=== PATIENT | female | born 1995 | race Caucasian/White ===

== ENCOUNTER 2018-03-14 20:29 | Emergency (ER) | payer BC ==
[2018-03-14 20:49] VITALS: BP 125/68
--- NOTE | 2018-03-14 20:57 | UC ---
Ear Complaint HPI - HPI Summary HPI Summary: Pt c/o left ear pain, swelling and purulent discharge X 2 days. Pt also c/o right ear feeling "full". - History of Current Complaint Chief Complaint: UCEar Stated Complaint: L EAR ISSUE Time Seen by Provider: 03/14/18 20:44 Hx Obtained From: Patient Hx Last Menstrual Period: 02/09/18 ?: No Onset/Duration: Sudden Onset, Lasting Days, Still Present Severity Initially: Mild Severity Currently: Moderate Pain Intensity: 7 Associated Signs/Symptoms: Positive: Swelling @ - Allergies/Home Medications Allergies/Adverse Reactions: Allergies Allergy/AdvReac Type Severity Reaction Status Date / Time No Known Allergies Allergy Verified 03/14/18 20:44 Home Medications: Home Medications Control Pill 1 tab PO DAILY 03/14/18 [History Confirmed 03/14/18] PARoxetine HCL TAB* [Paxil TAB*] 30 mg PO DAILY 03/14/18 [History Confirmed 05/20] PMH/Surg Hx/FS Hx/Imm Hx Previously Healthy: Yes - Surgical History Surgical History: None - Family History Known Family History: Positive: Cardiac Disease - Social History Occupation: Employed Full-time Lives: With Family Alcohol Use: Occasionally Substance Use Type: None Smoking Status (MU): Never Smoked Tobacco Have You Smoked in the Last Year: No Review of Systems Constitutional: Negative Skin: Negative Eyes: Negative ENT: Ear Ache Respiratory: Negative Cardiovascular: Negative Gastrointestinal: Negative Genitourinary: Negative Motor: Negative Neurovascular: Negative Musculoskeletal: Negative Neurological: Negative Psychological: Negative Is Patient Immunocompromised?: No All Other Systems Reviewed And Are Negative: Yes Physical Exam Triage Information Reviewed: Yes Appearance: Well-Appearing Vital Signs: Initial Vital Signs Temp 99 F 03/14/18 20:45 Pulse 79 03/14/18 20:45 Resp 16 03/14/18 20:45 BP 125/68 03/14/18 20:45 Pulse Ox 100 03/14/18 20:45 Vital Signs Reviewed: Yes Eyes: Positive: Conjunctiva Clear ENT Exam: Other ENT: Positive: Other - left ear canal erythema and swelling with purulent discharge. Dental Exam: Normal Neck: Positive: Enlarged Nodes @ - at base of left ear lobe. Respiratory: Positive: No respiratory distress Musculoskeletal Exam: Normal Neurological Exam: Normal Psychological Exam: Normal Skin Exam: Normal Ear Complaint Course/Dx - Differential Dx/Diagnosis Differential Diagnosis/HQI/PQRI: Cerumen Impaction, Otitis Externa, Otitis Media Provider Diagnoses: left ear otitis externa Discharge - Sign-Out/Discharge Documenting (check all that apply): Patient Departure All imaging exams completed and their final reports reviewed: No Studies - Discharge Plan Condition: Stable Disposition: HOME Prescriptions: Neomyc/Polym/HC 1% OTIC SUSP* [Cortisporin Otic Susp 1%*] 4 drop LEFT EAR Q6H 7 Days #1 btl Patient Education Materials: Otitis Externa (ED) Referrals: Vannessa Rey [Primary Care Provider] - If Needed Additional Instructions: Please follow up with your PCP as needed. - Billing Disposition and Condition Condition: STABLE Disposition: Home
== END 2018-03-14 21:05 | disposition home or self-care (01) ==
LOC: UCCORT 20:29
DX: H92.02 Otalgia, left ear (principal)
CPT/HCPCS: 99202; G0463

== ENCOUNTER 2018-09-01 12:53 | Emergency (ER) | payer BC ==
[2018-09-01 13:51] VITALS: BP 119/64
--- NOTE | 2018-09-01 14:25 | UC ---
Lower Extremity/Ankle HPI - HPI Summary HPI Summary: 23-year-old female presents with complaints of right foot pain. States last night she jumped off a couch and causing a hyperextension of her toes. She is complaining of pain at the base of the third, fourth, and fifth toes of her right foot. She was able to bear weight immediately after the injury as well as the clinic. Denies any numbness or tingling. - History of Current Complaint Chief Complaint: UCLowerExtremity Stated Complaint: RIGHT FOOT INJURY Time Seen by Provider: 09/01/18 13:54 Hx Obtained From: Patient Hx Last Menstrual Period: 3 wks Pain Intensity: 0 - Allergies/Home Medications Allergies/Adverse Reactions: Allergies Allergy/AdvReac Type Severity Reaction Status Date / Time No Known Allergies Allergy Verified 09/01/18 13:44 Home Medications: Home Medications Bupropion XL* [Wellbutrin XL *] 150 mg PO DAILY 09/01/18 [History Confirmed 06/21] PMH/Surg Hx/FS Hx/Imm Hx Previously Healthy: Yes - Denies significant PMH Psychological History: Depression - Surgical History Surgical History: None - Family History Known Family History: Positive: Cardiac Disease - Social History Occupation: Employed Full-time Lives: With Family Alcohol Use: Occasionally Substance Use Type: None Smoking Status (MU): Never Smoked Tobacco Have You Smoked in the Last Year: No Review of Systems All Other Systems Reviewed And Are Negative: Yes Constitutional: Negative: Fever, Chills Skin: Negative: Bruising Respiratory: Positive: Negative Cardiovascular: Positive: Negative Gastrointestinal: Positive: Negative Genitourinary: Positive: Negative Motor: Negative: Weakness Neurovascular: Negative: Decreased Sensation Musculoskeletal: Positive: Other: - See HPI Neurological: Positive: Negative Physical Exam - Summary Physical Exam Summary: GENERAL APPEARANCE: Well developed, well nourished, alert and cooperative, and appears to be in no acute distress. CARDIAC: Normal S1 and S2. No S3, S4 or murmurs. Rhythm is regular. There is no peripheral edema, cyanosis or pallor. Extremities are warm and well perfused. Capillary refill is less than 2 seconds. Peripheral pulses intact. LUNGS: Clear to auscultation without rales, rhonchi, wheezing or diminished breath sounds. ABDOMEN: Positive bowel sounds. Soft, nondistended, nontender. No guarding or rebound. No masses or hepatosplenomegally. MUSKULOSKELETAL: Normal muscular development. Limping gait. EXTREMITIES: Tenderness at the base of the 3rd, 4th, and 5th toes of the right foot. No ecchymosis, erythema, edema, or gross deformity noted. Sensation and circulation intact. SKIN: Skin normal color, texture and turgor. Triage Information Reviewed: Yes Vital Signs: Initial Vital Signs Temp 99 F 09/01/18 13:46 Pulse 72 09/01/18 13:46 Resp 20 09/01/18 13:46 BP 119/64 09/01/18 13:46 Pulse Ox 100 09/01/18 13:46 Vital Signs Reviewed: Yes Diagnostics - Radiology No standard instances Radiology Interpretation Completed By: Radiologist Summary of Radiographic Findings: Order Information: FOOT RIGHT 3+ VWS. Accession Number: [id number]. CPT: 41860. Indication: Right foot pain. 3 views of the right foot demonstrates no fracture. No other bone or joint abnormality is identified. Special attention was first metatarsal base. IMPRESSION: Unremarkable right foot. Lower Extremity Course/Dx - Course Course Of Treatment: 23-year-old female presents with complaints of right foot pain. States last night she jumped off a couch and causing a hyperextension of her toes. She is complaining of pain at the base of the third, fourth, and fifth toes of her right foot. She was able to bear weight immediately after the injury as well as the clinic. Denies any numbness or tingling. Afebrile. Vital signs stable. Exam significant for tenderness to the distal third, fourth, and fifth metatarsals without ecchymosis, erythema, edema, or gross deformity. Circulation and sensation intact. X-ray showed no acute fracture or dislocation. Recommending conservative treatment for sprain of the right foot including use of postop shoe, [id number] analgesics, and RICE. She is to follow-up with her primary care provider in 7 days if symptoms do not improve. Anticipatory guidance and warning symptoms were reviewed with the patient. Verbalizes understanding and agrees with plan of care. - Differential Dx/Diagnosis Differential Diagnosis/HQI/PQRI: Contusion, Dislocation, Fracture (Closed), Sprain Provider Diagnosis: Right foot sprain Discharge - Sign-Out/Discharge Documenting (check all that apply): Patient Departure All imaging exams completed and their final reports reviewed: Yes - Discharge Plan Condition: Stable Disposition: HOME Patient Education Materials: Foot Sprain (ED) Forms: *Work Release Referrals: Charlene Dennis PA [Primary Care Provider] - 7 Days (If no improvement.) Additional Instructions: The x-ray performed in the clinic today showed no evidence of fracture or dislocation. I suspect that your symptoms are from a sprain of the right foot. Rest the foot as much as possible. You may continue to walk and bear weight as tolerated. Wear the post-op shoe provided to you for the next several days until you are pain free. Apply ice to the affected area for 15-20 minutes as least 4 times a day to help with pain and swelling. Keep the foot elevated while sitting to help reduce any swelling. Take acetaminophen (Tylenol) or ibuprofen (Advil, Motrin) according to directions as needed for pain. Follow up with your primary care provider in 7 days if no improvement in symptoms. Seek immediate medical attention in the emergency room if you have severe pain not managed with pain medication, develop numbness or tingling in the foot or toes, are unable to walk or bear weight, or have any worsening of symptoms. - Billing Disposition and Condition Condition: STABLE Disposition: Home
== END 2018-09-01 14:47 | disposition home or self-care (01) ==
LOC: UCCORT 12:53
DX: S93.601A Unspecified sprain of right foot, initial encounter (principal); F32.9 Major depressive disorder, single episode, unspecified; Z79.899 Other long term (current) drug therapy; X50.0XXA Overexertion from strenuous movement or load, initial encounter; Y93.39 Activity, other involving climbing, rappelling and jumping off; Y92.9 Unspecified place or not applicable
CPT/HCPCS: 99212; G0463

== ENCOUNTER 2019-01-06 21:13 | Emergency (ER) | payer BC ==
[2019-01-06 21:23] VITALS: BP 139/74
--- NOTE | 2019-01-06 21:32 | UC ---
Back Pain HPI - HPI Summary HPI Summary: pt reports she has been having episodes of L upper back pain on and off for the past year. Saturday, it became worse. she denies and hx of injury. she has a manually labor intensive job. she saw a chiropractor today who diagnosed scoliosis but couldn't tx her due to spasms. she took an IB this afternoon and one at 9pm with a little relief. she denies any cough, sob, cp and numbness/weakness to her arms. - History of Current Complaint Chief Complaint: UCBackPain Stated Complaint: UPPER BACK PAIN Time Seen by Provider: 01/06/19 21:25 Hx Obtained From: Patient Hx Last Menstrual Period: 12/17/18 Pain Intensity: 10 Aggravating Factor(s): Movement Alleviating Factor(s): Other - being still with her head held tilted to right - Allergies/Home Medications Allergies/Adverse Reactions: Allergies Allergy/AdvReac Type Severity Reaction Status Date / Time No Known Allergies Allergy Verified 01/06/19 21:23 PMH/Surg Hx/FS Hx/Imm Hx - Additional Past Medical History Additional PMH: scoliosis-dx today by chiropractor Psychological History: Depression - Surgical History Surgical History: None - Family History Known Family History: Positive: Cardiac Disease - Social History Alcohol Use: Occasionally Substance Use Type: None Smoking Status (MU): Never Smoked Tobacco Have You Smoked in the Last Year: No Review of Systems All Other Systems Reviewed And Are Negative: No Constitutional: Negative: Fever, Chills Skin: Negative: Rash Respiratory: Negative: Shortness Of Breath, Cough Cardiovascular: Negative: Palpitations, Chest Pain Musculoskeletal: Positive: Decreased ROM - neck/upper back Neurological: Negative: Weakness, Paresthesia, Numbness Physical Exam Triage Information Reviewed: Yes Appearance: Pain Distress Vital Signs: Initial Vital Signs Temp 97.9 F 01/06/19 21:16 Pulse 81 01/06/19 21:16 Resp 16 01/06/19 21:16 BP 139/74 01/06/19 21:16 Pulse Ox 100 01/06/19 21:16 Vital Signs Reviewed: Yes Eyes: Positive: Conjunctiva Clear Neck: Positive: No Lymphadenopathy Respiratory: Positive: Lungs clear, Normal breath sounds Cardiovascular: Positive: RRR, No Murmur, Pulses Normal - BUE's Abdomen Description: Positive: Nontender Musculoskeletal: Positive: No Edema - BLE's or calf cords or tenderness., Other : - Neck: tilted to R. no adenopathy. no c-spine tenderness. Back: subtle curvature upper back. Tender over L side of trapezius muscle. ROM neck and upper back limited by trapezius muscle spasm. s/v/m intactx4. Neurological: Positive: Alert Psychological: Positive: Normal Response To Family, Age Appropriate Behavior Skin Exam: Normal Skin: Negative: Rashes Back Pain Course/Dx - Differential Dx/Diagnosis Differential Diagnosis/HQI/PQRI: Other - likely scoliosis based on exam. no concern for cardiopulmonary pathology or PE or disection. mm spasm based on exam. Provider Diagnosis: Trapezius muscle spasm, Upper back pain Discharge - Sign-Out/Discharge Documenting (check all that apply): Patient Departure All imaging exams completed and their final reports reviewed: No Studies - Discharge Plan Condition: Stable Disposition: HOME Prescriptions: Cyclobenzaprine TAB* [Flexeril 10 MG TAB*] 10 mg PO TID PRN #10 tab PRN Reason: Spasms - Muscle Naproxen [Naprosyn 500 mg tab] 500 mg PO BID 5 Days #10 tablet Patient Education Materials: Muscle Spasm (ED), Back Pain (ED) Forms: *Work Release Referrals: Charlene Dennis PA [Primary Care Provider] - 7 Days - Billing Disposition and Condition Condition: STABLE Disposition: Home
[2019-01-06] MEDS ORDERED: Acetaminoph/Cod 120/12 mg LIQ* 5 ML UDC PO ONE (21:43)
[2019-01-06] MEDS ORDERED: Cyclobenzaprine TAB* 10 MG PO ONE (21:44)
== END 2019-01-06 21:57 | disposition home or self-care (01) ==
LOC: UCCORT 21:13
DX: M62.830 Muscle spasm of back (principal); M54.6 Pain in thoracic spine
CPT/HCPCS: 99212; A9270-GY; G0463

== ENCOUNTER 2019-04-30 12:14 | Emergency (ER) | payer BC ==
[2019-04-30 12:29] VITALS: BP 109/61
--- NOTE | 2019-04-30 12:38 | UC ---
UC Dental HPI - HPI Summary HPI Summary: 24 year old female presents with complaint of right upper tooth abscess that spontaneously ruptured yesterday. - History of Current Complaint Chief Complaint: UCDentalProblem Stated Complaint: DENTAL Time Seen by Provider: 04/30/19 12:22 Hx Obtained From: Patient Hx Last Menstrual Period: 04/23/19 Pain Intensity: 0 - Allergies/Home Medications Allergies/Adverse Reactions: Allergies Allergy/AdvReac Type Severity Reaction Status Date / Time No Known Allergies Allergy Verified 04/30/19 12:29 PMH/Surg Hx/FS Hx/Imm Hx Previously Healthy: Yes - Surgical History Surgical History: None - Family History Known Family History: Positive: Cardiac Disease - Social History Alcohol Use: Occasionally Alcohol Amount: weekends Substance Use Type: None Smoking Status (MU): Never Smoked Tobacco Have You Smoked in the Last Year: No Review of Systems All Other Systems Reviewed And Are Negative: Yes Constitutional: Positive: Negative Skin: Positive: Negative Eyes: Positive: Negative ENT: Positive: Dental Pain - right upper tooth, mild swelling or right upper gum. Respiratory: Positive: Negative Cardiovascular: Positive: Negative Gastrointestinal: Positive: Negative Genitourinary: Positive: Negative Motor: Positive: Negative Neurovascular: Positive: Negative Musculoskeletal: Positive: Negative Neurological: Positive: Negative Psychological: Positive: Negative Is Patient Immunocompromised?: No Physical Exam Triage Information Reviewed: Yes Appearance: Well-Appearing, No Pain Distress, Well-Nourished Vital Signs: Initial Vital Signs Temp 99.2 F 04/30/19 12:24 Pulse 80 04/30/19 12:24 Resp 16 04/30/19 12:24 BP 109/61 04/30/19 12:24 Pulse Ox 100 04/30/19 12:24 Eye Exam: Normal ENT Exam: Normal Dental: Positive: Gross Decay/Caries @ - right upper tooth with swelling of gum line. Neck: Positive: Supple, Nontender, No Lymphadenopathy Respiratory: Positive: Lungs clear, Normal breath sounds Cardiovascular: Positive: RRR, No Murmur Abdomen Description: Positive: Nontender, Soft Musculoskeletal Exam: Normal Neurological Exam: Normal Psychological Exam: Normal Skin Exam: Normal Images Dental: 1 - dalia Dental Complaint Course/Dx - Differential Dx/Diagnosis Differential Diagnosis/Dx: Dental Caries Provider Diagnosis: Dental abscess Discharge ED - Sign-Out/Discharge Documenting (check all that apply): Patient Departure All imaging exams completed and their final reports reviewed: No Studies - Discharge Plan Condition: Stable Disposition: HOME Prescriptions: Amoxicillin PO (*) [Amoxicillin 500 MG CAP*] 500 mg PO TID 10 Days #30 cap Patient Education Materials: Dental Abscess (ED) Referrals: Charlene Dennis PA [Primary Care Provider] - Additional Instructions: Schedule an appointment with a dentist in the next 7-10 days. Finish all the antibiotics prescribed. - Billing Disposition and Condition Condition: STABLE Disposition: Home
== END 2019-04-30 12:44 | disposition home or self-care (01) ==
LOC: UCCORT 12:14
DX: K04.7 Periapical abscess without sinus (principal)
CPT/HCPCS: 99212; G0463